=== PATIENT | male | born 2005 | race Caucasian/White ===

== ENCOUNTER 2024-12-27 10:41 | Emergency (ER) | payer OTHER, SELFPAY ==
[2024-12-27 10:45] VITALS: BP 138/72; PULSE 82; TEMP 36.7; O2SAT 98; BMI 33.2
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
--- NOTE | 2024-12-27 10:53 | PC.NURSE ---
right hand swollen, strong radial pulse. able to move all fingers and no pain radiating to wrist or arm.
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
== END 2024-12-27 11:45 | disposition home or self-care (01) ==
PROVIDERS: Emergency Provider Emergency Medicine
DX: S60.221A Contusion of right hand, initial encounter (principal); S63.91XA Sprain of unspecified part of right wrist and hand, initial encounter; W22.8XXA Striking against or struck by other objects, initial encounter
CPT/HCPCS: 73130; 99283